=== PATIENT | female | born 1970 | race Caucasian/White ===

== ENCOUNTER 2016-05-18 17:17 | Emergency (ER) | payer MEDICAID ==
[~2016-05-18] VITALS: Ht 165.1 cm; Wt 73.6 kg
[~2016-05-18 17:17] MED LIST: ALBU18HF INH; CITA40TA12 PO; FLUT1AER INH; LISI-167 PO
[2016-05-18 17:25] VITALS: BP 115/77
[2016-05-18] MEDS ORDERED: ALBUTEROL/IPRATROPIUM 2.5MG/0.5MG, 3 ML NPPB ONE (18:00)
[2016-05-18] MEDS ORDERED: ALBUTEROL/IPRATROPIUM 2.5MG/0.5MG, 3 ML ONE (18:12)
== END 2016-05-18 18:37 | disposition home or self-care (01) ==
LOC: ED 18:20
DX: Z76.0 Encounter for issue of repeat prescription (principal); J45.31 Mild persistent asthma with (acute) exacerbation; I10 Essential (primary) hypertension; F41.1 Generalized anxiety disorder
CPT/HCPCS: 94640; 99283; J7620

== ENCOUNTER 2017-05-16 20:07 | Emergency (ER) | payer MEDICAID ==
[~2017-05-16] VITALS: Ht 165.1 cm; Wt 78.5 kg
[2017-05-16 20:27] VITALS: BP 121/84
[2017-05-16] MEDS ORDERED: HYDROcodone/APAP 5/325 TABLET PO ONE (21:00)
[2017-05-16] MEDS ORDERED: IBUPROFEN 200 MG TABLET PO ONE (21:00)
[2017-05-16] MEDS ORDERED: IBUPROFEN 200 MG TABLET ONE (21:10)
[2017-05-16] MEDS ORDERED: HYDROcodone/APAP 5/325 TABLET ONE (21:10)
== END 2017-05-16 21:31 | disposition home or self-care (01) ==
LOC: ED 21:15
DX: K13.0 Diseases of lips (principal); J34.0 Abscess, furuncle and carbuncle of nose; I10 Essential (primary) hypertension; J45.909 Unspecified asthma, uncomplicated
CPT/HCPCS: 99283

== ENCOUNTER 2017-07-09 16:45 | Emergency (ER) | payer MEDICAID ==
[~2017-07-09] VITALS: Ht 165.1 cm; Wt 79.1 kg
[2017-07-09 16:54] VITALS: BP 115/78
[2017-07-09] MEDS ORDERED: LIDOCAINE-MPF 1%, 5ML ONE (17:31)
[2017-07-09] MEDS ORDERED: LIDOCAINE 2%, 20ML SQ ONE (18:00)
[2017-07-09] MEDS ORDERED: MOME13HF2 INH (18:05)
== END 2017-07-09 18:48 | disposition home or self-care (01) ==
LOC: ED 18:20
DX: L03.211 Cellulitis of face (principal); L01.00 Impetigo, unspecified; F41.9 Anxiety disorder, unspecified; I10 Essential (primary) hypertension
CPT/HCPCS: 99283

== ENCOUNTER 2017-11-21 17:37 | Emergency (ER) | payer MEDICAID ==
[~2017-11-21] VITALS: Ht 165.1 cm; Wt 81.1 kg
[~2017-11-21 17:37] MED LIST changes: +MOME13HF2 INH
[2017-11-21] MEDS ORDERED: MAALOX/HYOSCYAMINE/LIDOCAINE 45 ML BTL PO ONE (18:00)
[2017-11-21 18:21] VITALS: BP 122/89
[2017-11-21 18:28] LABS: BASOPHILS # (AUTO) 0.03 x10^3/uL (0-0.1); BASOPHILS % (AUTO) 0 % (0-1); EOSINOPHILS # (AUTO) 0.23 x10^3/uL (0-0.4); EOSINOPHILS % (AUTO) 2 % (1-7); LYMPHOCYTES # (AUTO) 1.66 x10^3/uL (1-3.4); LYMPHOCYTES % (AUTO) 13 % (22-44); MD NO; MEAN CORPUSCULAR HEMOGLOBIN 33.6 pg (27.0-34.8); MEAN CORPUSCULAR HGB CONC 33.4 g/dL (32.4-35.8); MEAN CORPUSCULAR VOLUME 100.5 fL (80-100); MEAN PLATELET VOLUME 7.4 fL (7.4-10.4); MONOCYTES # (AUTO) 0.49 x10^3/uL (0.2-0.8); MONOCYTES % (AUTO) 4 % (2-9); NEUTROPHILS # (AUTO) 10.83 x10^3/uL (1.8-6.8); NEUTROPHILS % (AUTO) 82 % (42-75); PLATELET COUNT 291 x10^3/uL (130-400); RED BLOOD COUNT 4.15 x10^6/uL (3.82-5.3)
[2017-11-21] MEDS ORDERED: FAMOTIDINE 20 MG TABLET PO ONE (18:30)
[2017-11-21 18:36] LABS: ALANINE AMINOTRANSFERASE 124 U/L (12-78); ALBUMIN 3.4 g/dL (3.4-5.0); ANION GAP 10 mmol/L (5-15); CALCIUM 8.9 mg/dL (8.5-10.1); CHLORIDE 106 mmol/L (98-107)
[2017-11-21 18:40] LABS: ALKALINE PHOSPHATASE 89 U/L (45-117); BILIRUBIN,TOTAL 0.2 mg/dL (0.2-1.0); CREATININE 0.86 mg/dL (0.55-1.02); TOTAL PROTEIN 6.6 g/dL (6.4-8.2); TROPONIN I < 0.015 ng/mL (0.000-0.045)
[2017-11-21] MEDS ORDERED: MAALOX/HYOSCYAMINE/LIDOCAINE 45 ML BTL ONE (18:47)
[2017-11-21] MEDS ORDERED: FAMOTIDINE 20 MG TABLET ONE (18:47)
== END 2017-11-21 19:46 | disposition home or self-care (01) ==
LOC: ED 19:40
DX: K21.9 Gastro-esophageal reflux disease without esophagitis (principal); I10 Essential (primary) hypertension
CPT/HCPCS: 36415; 71045; 76700; 80053; 84484; 85025; 93005; 99285

== ENCOUNTER 2018-08-29 06:12 | Emergency (ER) | payer MEDICAID ==
[~2018-08-29] VITALS: Ht 165.1 cm; Wt 79.5 kg
[2018-08-29] MEDS ORDERED: ONDANSETRON 2MG/ML, 2ML ONE (06:29)
[2018-08-29] MEDS ORDERED: ONDANSETRON 2MG/ML, 2ML IVPush ONE (06:30)
[2018-08-29] MEDS ORDERED: MORPHINE SULFATE 4 MG/ML, 1ML IVPush PRN (06:30)
[2018-08-29] MEDS ORDERED: MORPHINE SULFATE 4 MG/ML, 1ML ONE (06:30)
[2018-08-29] MEDS ORDERED: SODIUM CHLORIDE FLUSH 10ML SYR IVF ONE (06:30)
--- NOTE | 2018-08-29 06:42 | NUR ---
FIRST CONTACT WITH PT. PT C/O ABD PAIN RADIATING TO FLANKS SINCE 99. HX OF SAME. DENIES N/V/D. NO RELIEF WITH ZANTAC, RANITIDINE, MILANTA. PT'S AOX4. RESPS EVEN AND UNLABORED. BP/SPO2 MONITORS IN PLACE. CALL LIGHT WITHIN REACH. PA AT BEDSIDE TO EVALUATE.
--- NOTE | 2018-08-29 06:43 | NUR ---
PT AMB TO BR AND BACK TO ROOM WITH STEADY GAIT. UA SENT.
--- NOTE | 2018-08-29 06:43 | NUR ---
PT MEDICATED PER EMAR. PT TOLERATED WELL.
[2018-08-29 06:44] LABS: BASOPHILS # (AUTO) 0.03 x10^3/uL (0-0.1); BASOPHILS % (AUTO) 0 % (0-1); EOSINOPHILS # (AUTO) 0.66 x10^3/uL (0-0.4); EOSINOPHILS % (AUTO) 7 % (1-7); LYMPHOCYTES # (AUTO) 2.17 x10^3/uL (1-3.4); LYMPHOCYTES % (AUTO) 21 % (22-44); MD NO; MEAN CORPUSCULAR HEMOGLOBIN 33.6 pg (27.0-34.8); MEAN CORPUSCULAR HGB CONC 33.4 g/dL (32.4-35.8); MEAN CORPUSCULAR VOLUME 100.7 fL (80-100); MEAN PLATELET VOLUME 7.3 fL (7.4-10.4); MONOCYTES # (AUTO) 0.49 x10^3/uL (0.2-0.8); MONOCYTES % (AUTO) 5 % (2-9); NEUTROPHILS # (AUTO) 6.89 x10^3/uL (1.8-6.8); NEUTROPHILS % (AUTO) 67 % (42-75); PLATELET COUNT 322 x10^3/uL (130-400); RED BLOOD COUNT 3.97 x10^6/uL (3.82-5.3)
[2018-08-29] MEDS ORDERED: FAMOTIDINE 20 MG/2 ML ONE (06:45)
--- NOTE | 2018-08-29 06:56 | NUR ---
REPORT RECIEVED FROM KARTIK
[2018-08-29 06:57] LABS: ALANINE AMINOTRANSFERASE 34 U/L (12-78); ALBUMIN 3.8 g/dL (3.4-5.0); ANION GAP 5 mmol/L (5-15); CHLORIDE 106 mmol/L (98-107)
--- NOTE | 2018-08-29 06:58 | NUR ---
REPORT GIVEN TO DAVID LEY.
[2018-08-29] MEDS ORDERED: FAMOTIDINE 20 MG/2 ML IVPush ONE (07:00)
[2018-08-29 07:01] LABS: ALKALINE PHOSPHATASE 55 U/L (45-117); BILIRUBIN,TOTAL 0.5 mg/dL (0.2-1.0); TOTAL PROTEIN 7.2 g/dL (6.4-8.2)
[2018-08-29 07:08] LABS: CULTURE INDICATED? YES; MICROSCOPIC INDICATED
[2018-08-29 08:00] VITALS: BP 108/66
== END 2018-08-29 08:11 | disposition home or self-care (01) ==
LOC: ED 08:06
DX: K80.20 Calculus of gallbladder without cholecystitis without obstruction (principal); K21.9 Gastro-esophageal reflux disease without esophagitis; I10 Essential (primary) hypertension; J45.909 Unspecified asthma, uncomplicated; Z79.899 Other long term (current) drug therapy
CPT/HCPCS: 36415; 76700; 80053; 81001; 83690; 84703; 85025; 87086; 96374; 96375; 99284; J2270; J2405; J3490

== ENCOUNTER 2019-09-06 10:47 | Emergency (ER) | payer MEDICAID ==
[~2019-09-06] VITALS: Ht 165.1 cm; Wt 81.4 kg
[2019-09-06] MEDS ORDERED: KETOROLAC 30 MG/1 ML IM ONE (11:00)
[2019-09-06] MEDS ORDERED: KETOROLAC 30 MG/1 ML ONE (11:16)
[2019-09-06] MEDS ORDERED: ACETAMINOPHEN 325 MG TABLET ONE (11:16)
[2019-09-06 11:28] LABS: MICROSCOPIC AUTO
--- NOTE | 2019-09-06 11:28 | NUR ---
PT IN HOSPITAL GOWN AND ON VITALS MONITORS. LABS HAVE BEEN DRAWN. PT MEDICATED PER EMAR. PT ABLE TO AMBULATE TO THE BATHROOM STEADILY AND PROVIDE A URINE SAMPLE. URINE WALKED TO LAB. PT RESTING CALMLY IN BED AT THIS TIME. WILL CONTINUE TO MONITOR.
[2019-09-06] MEDS ORDERED: ACETAMINOPHEN 325 MG TABLET PO ONE (11:30)
[2019-09-06 11:33] LABS: BASOPHILS % (AUTO) 0 % (0-1); EOSINOPHILS # (AUTO) 0.04 x10^3/uL (0-0.4); EOSINOPHILS % (AUTO) 0 % (1-7); LYMPHOCYTES # (AUTO) 0.52 x10^3/uL (1-3.4); LYMPHOCYTES % (AUTO) 5 % (22-44); MD NO; MEAN CORPUSCULAR HGB CONC 32.3 g/dL (32.4-35.8); MEAN CORPUSCULAR VOLUME 99.2 fL (80-100); MEAN PLATELET VOLUME 7.3 fL (7.4-10.4); MONOCYTES # (AUTO) 0.67 x10^3/uL (0.2-0.8); MONOCYTES % (AUTO) 7 % (2-9); NEUTROPHILS # (AUTO) 9.18 x10^3/uL (1.8-6.8); NEUTROPHILS % (AUTO) 88 % (42-75); PLATELET COUNT 287 x10^3/uL (130-400); RED BLOOD COUNT 4.01 x10^6/uL (3.82-5.3); RED CELL DISTRIBUTION WIDTH 14.5 % (9.6-15.2)
[2019-09-06 11:46] LABS: ALANINE AMINOTRANSFERASE 26 U/L (12-78); ALBUMIN 3.1 g/dL (3.4-5.0); ANION GAP 6 mmol/L (5-15); CALCIUM 9.2 mg/dL (8.5-10.1); CHLORIDE 103 mmol/L (98-107); CREATININE 0.77 mg/dL (0.55-1.02)
[2019-09-06 11:51] LABS: ALKALINE PHOSPHATASE 83 U/L (45-117); BILIRUBIN,TOTAL 0.3 mg/dL (0.2-1.0); TOTAL PROTEIN 7.1 g/dL (6.4-8.2)
--- NOTE | 2019-09-06 12:47 | NUR ---
PT AWARE SHE IS ORDERED AN US. US STILL NEEDING TO BE DONE. PT RESTING CALMLY IN BED WITH EYES CLOSED.
--- NOTE | 2019-09-06 13:22 | NUR ---
break RN note: US in progress at this time at bedside. pt reports pain improved s/p meds given by primary RN. pt is a&o, resps even and unlabored. nadn. awaiting US and dispo.
--- NOTE | 2019-09-06 14:13 | NUR ---
report given to primary RN Cari, pt awaiting US results and dispo.
[2019-09-06 14:20] VITALS: BP 104/59
--- NOTE | 2019-09-06 14:33 | NUR ---
TELEPHONE CALL TO RAD REGARDING DELAY.
--- NOTE | 2019-09-06 14:54 | NUR ---
Patient given discharge instructions and they have confirmed that they understand the instructions. Patient ambulatory with steady gait.
== END 2019-09-06 14:55 | disposition home or self-care (01) ==
LOC: ED 14:52
DX: N30.01 Acute cystitis with hematuria (principal); R11.2 Nausea with vomiting, unspecified; R50.9 Fever, unspecified; I10 Essential (primary) hypertension; J45.909 Unspecified asthma, uncomplicated; K21.9 Gastro-esophageal reflux disease without esophagitis
CPT/HCPCS: 36415; 76770; 80053; 81001; 84703; 85025; 87086; 96372; 99285; J1885

== ENCOUNTER 2020-01-24 06:45 | Emergency (ER) | payer MEDICAID ==
[~2020-01-24] VITALS: Ht 170.2 cm; Wt 81.3 kg
[2020-01-24] MEDS ORDERED: HYDROmorphone 1 MG/ML, 1ML INJ IVPush PRN (07:00)
[2020-01-24] MEDS ORDERED: ONDANSETRON 2MG/ML, 2ML IVPush ONE (07:00)
[2020-01-24] MEDS ORDERED: SODIUM CHLORIDE FLUSH 10ML SYR IVF ONE (07:00)
[2020-01-24] MEDS ORDERED: HYDROmorphone 1 MG/ML, 1ML INJ ONE (07:05)
[2020-01-24] MEDS ORDERED: ONDANSETRON 2MG/ML, 2ML ONE (07:06)
--- NOTE | 2020-01-24 07:20 | NUR ---
pt w c/o upper abd/epigastric pain woke her up this am. thinks is gall bladder. does not follow diet. hx gall stones, denies pancreatitis hx. last oral intake 10 pm last night. no n/v/d. last bm yest, normal. abd soft, tender. piv est/labs/meds w immediate improvement to pain. daughter in room. call curtis in reach. as
[2020-01-24 07:25] LABS: BASOPHILS % (AUTO) 1 % (0-1); EOSINOPHILS % (AUTO) 4 % (1-7); LYMPHOCYTES % (AUTO) 25 % (22-44); MEAN CORPUSCULAR HEMOGLOBIN 32.6 pg (27.0-34.8); MEAN CORPUSCULAR HGB CONC 33.1 g/dL (32.4-35.8); MEAN PLATELET VOLUME 7.3 fL (7.4-10.4); MONOCYTES % (AUTO) 7 % (2-9); NEUTROPHILS % (AUTO) 64 % (42-75); PLATELET COUNT 418 x10^3/uL (130-400); RED BLOOD COUNT 4.17 x10^6/uL (3.82-5.3); RED CELL DISTRIBUTION WIDTH 14.5 % (9.6-15.2)
[2020-01-24 07:31] LABS: MD NO
[2020-01-24 07:35] LABS: CALCIUM 10.4 mg/dL (8.5-10.1); CHLORIDE 106 mmol/L (98-107); CREATININE 0.87 mg/dL (0.55-1.02)
[2020-01-24 07:36] LABS: ALANINE AMINOTRANSFERASE 24 U/L (12-78); ALBUMIN 3.9 g/dL (3.4-5.0)
[2020-01-24 07:38] LABS: ALKALINE PHOSPHATASE 71 U/L (45-117); BILIRUBIN,TOTAL 0.2 mg/dL (0.2-1.0); TOTAL PROTEIN 7.7 g/dL (6.4-8.2)
[2020-01-24 07:46] LABS: ANION GAP 7 mmol/L (5-15)
--- NOTE | 2020-01-24 08:10 | NUR ---
pt sleeping, easily arousable, placed on 2lnc for desat see vitals. asking for more dilaudid. 09/03 pain. seems calm, low sat, no pain meds at this time. awaiting us. as
[2020-01-24] MEDS ORDERED: KETOROLAC 30 MG/1 ML ONE (08:29)
[2020-01-24] MEDS ORDERED: PANTOPRAZOLE 40 MG IV ONE (08:29)
[2020-01-24] MEDS ORDERED: KETOROLAC 30 MG/1 ML IVPush ONE (08:30)
[2020-01-24] MEDS ORDERED: PANTOPRAZOLE 40 MG IV IVPush ONE (08:30)
--- NOTE | 2020-01-24 09:02 | NUR ---
pa in room, pain improved, tbdc. as
[2020-01-24 09:43] VITALS: BP 115/65
--- NOTE | 2020-01-24 09:43 | NUR ---
scars on r ac noted pt denies iv drug abuse. as
== END 2020-01-24 09:45 | disposition home or self-care (01) ==
LOC: ED 08:59
DX: K80.20 Calculus of gallbladder without cholecystitis without obstruction (principal); R00.0 Tachycardia, unspecified; I10 Essential (primary) hypertension; K21.9 Gastro-esophageal reflux disease without esophagitis; J45.909 Unspecified asthma, uncomplicated
CPT/HCPCS: 36415; 76700; 80053; 83690; 85025; 96374; 96375; 99284; C9113; J1170; J1885; J2405